=== PATIENT | male | born 1965 | race Caucasian/White ===

== ENCOUNTER 2020-04-27 13:40 | Outpatient (CLI) | payer BC | END 2020-04-27 13:41 | disposition home or self-care (01) | LOC: ULT 13:40 | PROVIDERS: ATTEND Family Medicine | DX: R06.02 Shortness of breath (principal) | CPT/HCPCS: 93306 ==

== ENCOUNTER 2020-05-04 14:00 | Outpatient (CLI) | payer BC | END 2020-05-04 14:01 | disposition home or self-care (01) | LOC: DTY/OP 14:00 | PROVIDERS: ATTEND Family Medicine | DX: E78.5 Hyperlipidemia, unspecified (principal); G47.33 Obstructive sleep apnea (adult) (pediatric); I10 Essential (primary) hypertension; J30.2 Other seasonal allergic rhinitis; K76.0 Fatty (change of) liver, not elsewhere classified; E11.9 Type 2 diabetes mellitus without complications | CPT/HCPCS: 97802 ==

== ENCOUNTER 2021-09-30 09:53 | Inpatient (IN) | payer BC ==
[2021-09-30] MEDS ORDERED: Fentanyl 100 MCG/2 ML VIAL ONE (10:49)
[2021-09-30] MEDS ORDERED: diphenhydrAMINE 50 MG/ML VIAL ONE (10:51)
[2021-09-30] MEDS ORDERED: methylPREDNISolone Sod Succ/PF 125 MG/2 ML VIAL ONE (10:51)
[2021-09-30] MEDS ORDERED: Famotidine/PF 20 mg/2ml Vial ONE (10:51)
[2021-09-30 11:01] LABS: #Basophils 0.1 thou/uL (0.0-0.2); #Eosinphils 0.6 thou/uL (0.0-0.7); #Monocytes 0.8 thou/uL (0.11-0.59); %Basophils 0.7 % (0.0-1.0); %Eosinophils 5.4 % (0.0-10.0); %Lymphocytes 9.7 % (21.0-51.0); %Neutrophils 76.2 % (42.0-75.0); Hemoglobin 11.7 g/dL (14.0-18.0); Mean Corpuscular HGB CONC 32.8 g/dL (32.0-36.0); Mean Corpuscular Hemoglobin 30.4 pg (27.0-31.0); Mean Corpuscular Volume 92.6 fL (78.0-98.0); Mean Platelet Volume 6.2 fL (7.4-10.4); Platelet Count 300 thou/uL (130-400); RBC Distribution Width 13.7 % (11.5-14.5); Red Blood Cell (RBC) Count 3.84 mill/uL (4.70-6.10); White Blood Cell (WBC) Count 10.5 thou/uL (4.8-10.8)
[2021-09-30 11:19] LABS: ALT (SGPT) 45 U/L (8-55); AST (SGOT) 91 U/L (5-34); Albumin 3.2 g/dL (3.5-5.0); Alkaline Phosphatase 52 U/L (40-110); Anion Gap 12 mmol/L (10-20); BUN (Urea Nitrogen) 54 mg/dL (8.4-25.7); Bilirubin, Total 0.6 mg/dL (0.2-1.2); Calc. Creatinine Clearance 0 mL/min (70-130); Calcium 8.5 mg/dL (7.8-10.44); Carbon Dioxide 19 mmol/L (22-29); Chloride 113 mmol/L (98-107); Globulin 3.9 g/dL (2.4-3.5); Glucose 68 mg/dL (70-105); Potassium 4.3 mmol/L (3.5-5.1); Protein, Total 7.1 g/dL (6.0-8.3); Sodium 140 mmol/L (136-145)
[2021-09-30 12:15] LABS: CKMB 13.4 ng/mL (0-6.6)
[2021-09-30] MEDS ORDERED: Cefepime 2 GM VIAL ONE (13:02)
[2021-09-30] MEDS ORDERED: VANCOMYCIN 2 GRAM/400 ML BAG 2 GM in Premix Bag 1 BAG IVPB SCH (13:15)
[2021-09-30] MEDS ORDERED: Aspirin Chewable 81 MG TAB ONE (13:33)
[2021-09-30] MEDS ORDERED: Dextrose 5% in Water 1,000 ML IV PRN (14:52)
[2021-09-30] MEDS ORDERED: Dextrose 50% Abboject 50 ML SYRINGE SLOW IVP PRN (14:52)
[2021-09-30 15:08] LABS: Troponin I 0.037 ng/mL (< 0.028)
[2021-09-30 15:34] LABS: CK (CPK) 1822 U/L (30-200); Cardiac Risk 2.9 (Less than 4.5); Cholesterol 90 mg/dl (< 200 Desired); HDL Cholesterol 31 mg/dL (>60 Neg Risk); LDL Cholesterol, Calculated 45 mg/dL; Magnesium 2.2 mg/dL (1.6-2.6); Phosphorus 4.8 mg/dL (2.3-4.7); Triglycerides 72 mg/dL (Less than 150)
[2021-09-30 16:27] VITALS: BMI 49.1
[2021-09-30 16:51] LABS: Bilirubin Negative (Negative); Blood, Urine 3+ (Negative); Clarity Clear (Clear); Glucose, Urine (Dipstick) Normal (Negative); Ketone, Urine Negative (Negative); Leukocyte Negative Leu/uL (Negative); Nitrite Negative (Negative); Protein, Urine (Dipstick) 20 mg/dL (Neg-Trace); RBC/HPF 21-50 HPF (0-3); Specific Gravity, Urine 1.019 (1.002-1.036); Squamous Epithelial None Seen HPF (0-3); Urobilinogen Normal mg/dL (Less than 2); WBC/HPF 0-3 HPF (0-3)
[2021-09-30 16:54] LABS: Bacteria/HPF 1+ HPF (None Seen)
[2021-09-30 16:56] LABS: Urine Culture Reflex Yes Yes
[2021-09-30 17:14] LABS: Creatinine, Urine 150.88 mg/dL (63-166)
[2021-09-30 18:03] LABS: SARS-CoV-2 NAA Rapid Test Not Detected (NotDetected)
[2021-09-30 18:27] LABS: Troponin I 0.029 ng/mL (< 0.028)
[2021-09-30 19:32] LABS: Albumin 3.1 g/dL (3.5-5.0); Anion Gap 16 mmol/L (10-20); BUN (Urea Nitrogen) 54 mg/dL (8.4-25.7); BUN/Creatinine Ratio 19.64; CK (CPK) 1436 U/L (30-200); Calc. Creatinine Clearance 70 mL/min (70-130); Calcium 8.8 mg/dL (7.8-10.44); Carbon Dioxide 16 mmol/L (22-29); Chloride 113 mmol/L (98-107); Glucose 107 mg/dL (70-105); Phosphorus 4.7 mg/dL (2.3-4.7); Potassium 4.8 mmol/L (3.5-5.1); Sodium 140 mmol/L (136-145)
[2021-09-30] MEDS: Sodium Bicarbonate Tab 325 MG TAB PO SCH (20:28)
[2021-09-30] MEDS ORDERED: Vancomycin 1 GM in Premix Bag 1 BAG IVPB SCH (21:00)
[2021-09-30] MEDS: Acetaminophen 325 MG TAB PO PRN (21:03)
[2021-09-30] MEDS ORDERED: Sodium Bicarbonate 150 MEQ in Dextrose 5% in Water 1,000 ML IV SCH ×2 (21:15→21:30)
[2021-09-30] MEDS: traMADol HCl 50 MG TAB PO PRN (22:54)
[2021-10-01 03:59] LABS: Hemoglobin A1c 5.2 % (4.0-6.0)
[2021-10-01 06:43] LABS: Anion Gap 16 mmol/L (10-20); BUN (Urea Nitrogen) 55 mg/dL (8.4-25.7); BUN/Creatinine Ratio 19.78; CK (CPK) 1039 U/L (30-200); Calc. Creatinine Clearance 69 mL/min (70-130); Calcium 8.5 mg/dL (7.8-10.44); Carbon Dioxide 16 mmol/L (22-29); Chloride 112 mmol/L (98-107); Glucose 179 mg/dL (70-105); Phosphorus 5.1 mg/dL (2.3-4.7); Potassium 4.9 mmol/L (3.5-5.1); Sodium 139 mmol/L (136-145)
[2021-10-01] MEDS ORDERED: Enoxaparin Sodium 30 MG/0.3 ML SYRINGE SC SCH (09:00)
[2021-10-01] MEDS: Sodium Bicarbonate Tab 325 MG TAB PO SCH ×2 (09:58→20:24)
[2021-10-01] MEDS: Aspirin Chewable 81 MG TAB PO SCH (09:58)
[2021-10-01] MEDS ORDERED: Sodium Bicarbonate 150 MEQ in Dextrose 5% in Water 1,000 ML IV SCH (11:07)
[2021-10-01] MEDS ORDERED: Vancomycin 1.5 GRAM/300 ML BAG 1.5 GM in Premix Bag 1 BAG IVPB SCH (13:00)
[2021-10-01] MEDS ORDERED: Cefepime 1 GM in Sodium Chloride 0.9% 100 ML IVPB SCH ×2 (13:00→14:15)
[2021-10-01] MEDS: traMADol HCl 50 MG TAB PO PRN (20:24)
[2021-10-01] MEDS: Bisoprolol Fumarate 5 MG TAB PO SCH (20:24)
[2021-10-01] MEDS: Atorvastatin Calcium 10 MG TAB PO SCH (20:24)
[2021-10-01] MEDS: Gabapentin 300 MG CAP PO SCH (20:24)
[2021-10-01] MEDS ORDERED: HumaLOG 300 UNITS/3 ML VIAL SC PRN (20:30)
[2021-10-02] MEDS ORDERED: Cefepime 1 GM in Sodium Chloride 0.9% 100 ML IVPB SCH (02:00)
[2021-10-02 05:12] LABS: Albumin 2.9 g/dL (3.5-5.0); Anion Gap 15 mmol/L (10-20); BUN (Urea Nitrogen) 63 mg/dL (8.4-25.7); BUN/Creatinine Ratio 23.51; Calc. Creatinine Clearance 71 mL/min (70-130); Calcium 8.8 mg/dL (7.8-10.44); Carbon Dioxide 20 mmol/L (22-29); Chloride 111 mmol/L (98-107); Glucose 156 mg/dL (70-105); Potassium 4.6 mmol/L (3.5-5.1); Sodium 141 mmol/L (136-145)
[2021-10-02 07:47] LABS: #Basophils 0.1 thou/uL (0.0-0.2); #Eosinphils 0.2 thou/uL (0.0-0.7); #Lymphocytes 1.7 thou/uL (1.20-3.40); #Neutrophils 8.7 thou/uL (1.40-6.50); %Basophils 0.7 % (0.0-1.0); %Eosinophils 1.7 % (0.0-10.0); %Lymphocytes 14.2 % (21.0-51.0); %Monocytes 8.6 % (0.0-10.0); %Neutrophils 74.9 % (42.0-75.0); Hemoglobin 10.8 g/dL (14.0-18.0); Mean Corpuscular HGB CONC 31.5 g/dL (32.0-36.0); Mean Corpuscular Hemoglobin 29.4 pg (27.0-31.0); Mean Corpuscular Volume 93.6 fL (78.0-98.0); Mean Platelet Volume 6.5 fL (7.4-10.4); Platelet Count 270 thou/uL (130-400); RBC Distribution Width 13.7 % (11.5-14.5); Red Blood Cell (RBC) Count 3.66 mill/uL (4.70-6.10); White Blood Cell (WBC) Count 11.7 thou/uL (4.8-10.8)
[2021-10-02] MEDS: Aspirin Chewable 81 MG TAB PO SCH (08:05)
[2021-10-02] MEDS: Gabapentin 300 MG CAP PO SCH ×2 (08:05→20:26)
[2021-10-02] MEDS: Citalopram 20 MG TAB PO SCH (08:05)
[2021-10-02] MEDS: Amlodipine 10 MG TAB PO SCH (08:05)
[2021-10-02] MEDS: Bisoprolol Fumarate 5 MG TAB PO SCH ×2 (08:05→20:54)
[2021-10-02] MEDS: rOPINIRole HCl 2 MG TAB PO SCH (08:05)
[2021-10-02] MEDS: Enoxaparin Sodium 30 MG/0.3 ML SYRINGE SC SCH (08:06)
[2021-10-02] MEDS: Sodium Bicarbonate Tab 325 MG TAB PO SCH ×3 (10:29→20:31)
[2021-10-02] MEDS: Atorvastatin Calcium 10 MG TAB PO SCH (20:28)
[2021-10-02] MEDS: Triple Antibiotic Oint 1 GM Packet TOP SCH (20:28)
[2021-10-02] MEDS: traMADol HCl 50 MG TAB PO PRN (20:31)
[2021-10-03] MEDS: Acetaminophen 325 MG TAB PO PRN (01:27)
[2021-10-03] MEDS: Bisoprolol Fumarate 5 MG TAB PO SCH (08:27)
[2021-10-03] MEDS: Enoxaparin Sodium 30 MG/0.3 ML SYRINGE SC SCH (08:27)
[2021-10-03] MEDS: Gabapentin 300 MG CAP PO SCH (08:27)
[2021-10-03] MEDS: Citalopram 20 MG TAB PO SCH (08:27)
[2021-10-03] MEDS: Sodium Bicarbonate Tab 325 MG TAB PO SCH (08:28)
[2021-10-03] MEDS: Aspirin Chewable 81 MG TAB PO SCH (08:28)
[2021-10-03] MEDS: rOPINIRole HCl 2 MG TAB PO SCH (08:28)
[2021-10-03] MEDS: Triple Antibiotic Oint 1 GM Packet TOP SCH (08:28)
[2021-10-03] MEDS: Amlodipine 10 MG TAB PO SCH (08:28)
[2021-10-03] MEDS ORDERED: Lantus 1000 UNITS/10 ML VIAL SC SCH (09:00)
[2021-10-03 09:36] VITALS: BP 169/64
[2021-10-03 11:29] LABS: Anion Gap 13 mmol/L (10-20); BUN (Urea Nitrogen) 51 mg/dL (8.4-25.7); Calc. Creatinine Clearance 82 mL/min (70-130); Calcium 8.6 mg/dL (7.8-10.44); Carbon Dioxide 22 mmol/L (22-29); Chloride 111 mmol/L (98-107); Glucose 172 mg/dL (70-105); Potassium 4.3 mmol/L (3.5-5.1); Sodium 142 mmol/L (136-145)
[2021-10-03 16:22] VITALS: TEMP 98.2
[2021-10-03] MEDS ORDERED: FLU VACC QS2021-22(6MOS UP)/PF 60 MCG/0.5 ML SYRINGE IM ONE (16:45)
== END 2021-10-03 17:43 | disposition home or self-care (01) | DRG 682 ==
LOC: ERS 09:53 → IMCU/EMU 14:28
PROVIDERS: ADMIT Internal Medicine; ATTEND Internal Medicine
DX: N17.9 Acute kidney failure, unspecified (principal); E11.641 Type 2 diabetes mellitus with hypoglycemia with coma; J96.01 Acute respiratory failure with hypoxia; M62.82 Rhabdomyolysis; L03.116 Cellulitis of left lower limb; L03.115 Cellulitis of right lower limb; E87.2 Acidosis; Z68.42 Body mass index [BMI] 45.0-49.9, adult; J98.11 Atelectasis; Z20.822 Contact with and (suspected) exposure to COVID-19; I87.2 Venous insufficiency (chronic) (peripheral); E11.42 Type 2 diabetes mellitus with diabetic polyneuropathy; G25.81 Restless legs syndrome; F32.A Depression, unspecified; E11.22 Type 2 diabetes mellitus with diabetic chronic kidney disease; E66.01 Morbid (severe) obesity due to excess calories; G47.33 Obstructive sleep apnea (adult) (pediatric); N18.30 Chronic kidney disease, stage 3 unspecified; D63.1 Anemia in chronic kidney disease; E83.39 Other disorders of phosphorus metabolism; I12.9 Hypertensive chronic kidney disease with stage 1 through stage 4 chronic kidney disease, or unspecified chronic kidney disease; Z90.5 Acquired absence of kidney; Z79.4 Long term (current) use of insulin; Z88.0 Allergy status to penicillin; Z91.013 Allergy to seafood; Z79.899 Other long term (current) drug therapy; Z79.82 Long term (current) use of aspirin; Z99.89 Dependence on other enabling machines and devices
CPT/HCPCS: 36415; 36416; 70450; 71045; 72125; 72192; 76770; 80048; 80053; 80061; 80069; 81001; 82533; 82550; 82553; 82570; 83036; 83605; 83735; 83880; 83930; 83935; 84100; 84145; 84300; 84443; 84484; 84550; 85025; 85379; 87040; 87086; 93005; 93306; 93970; 94002; 94660; 94760; 96365; 96367; 96375; J0692; J1200; J1650; J1815; J2930; J3010; J3370; J3490; J7070; S0028; U0002